=== PATIENT | male | born 1995 | race Hispanic/Latino ===

== ENCOUNTER 2019-11-20 17:25 | Emergency (ER) | payer OTHER ==
--- NOTE | 2019-11-20 18:10 | RAD REPORT ---
EXAM DESCRIPTION: RAD - Pelvis - 11/20/2019 6:04 pm CLINICAL HISTORY: hip pain COMPARISON: Hip Left 2 View dated 11/20/2019 FINDINGS: No fracture, dislocation or radiographic evidence of AVN. IMPRESSION: Negative study.
--- NOTE | 2019-11-20 18:11 | RAD REPORT ---
EXAM DESCRIPTION: RAD - Hip Left 2 View - 11/20/2019 6:04 pm CLINICAL HISTORY: hip pain COMPARISON: Pelvis dated 11/20/2019 FINDINGS: No fracture or dislocation evident.
[2019-11-20] MEDS ORDERED: KETOROLAC 30 MG/ML INJ ONE (18:30)
--- NOTE | 2019-11-20 18:41 | EDPHYS ---
Physician Documentation [facility] Name: Wali Morin Age: 24 yrs Sex: Male : 1995 Arrival Date: 11/20/2019 Time: 17:28 Bed 20 Private MD: ED Physician Deepak Vlilegas HPI: 11/19 17:40 This 24 yrs old Male presents to ER via Ambulatory with complaints of Thigh jmm Pain. 17:40 The patient presents with an injury, pain. Onset: The symptoms/episode began/occurred jmm acutely, yesterday. Modifying factors: The symptoms are alleviated by nothing. the symptoms are aggravated by movement. This is a 24 year old male with no chronic medical conditions that presents to the ED with complaints of left hip pain after a fall which occurred yesterday. Patient states pain was more intense yesterday. Denies other injury. . Historical: - Allergies: 17:34 No Known Allergies; ca1 - Home Meds: 17:34 None [Active]; ca1 - PMHx: 17:34 None; ca1 - PSHx: 17:34 None; ca1 - Immunization history:: Adult Immunizations up to date, Flu vaccine is up to date. - Social history:: Smoking status: Patient denies any tobacco usage or history of. ROS: 17:40 Constitutional: Negative for fever, chills, and weight loss, Cardiovascular: Negative jmm for chest pain, palpitations, and edema, Respiratory: Negative for shortness of breath, cough, wheezing, and pleuritic chest pain. 17:40 MS/extremity: Positive for injury or acute deformity. 17:40 All other systems are negative. Exam: 17:40 Constitutional: This is a well developed, well nourished patient who is awake, alert, jmm and in no acute distress. Head/Face: atraumatic. Eyes: EOMI, no conjunctival erythema appreciated ENT: Moist Mucus Membranes Neck: Trachea midline, Supple Chest/axilla: Normal chest wall appearance and motion. Cardiovascular: Regular rate and rhythm. No edema appreciated Respiratory: Normal respirations, no respiratory distress appreciated Abdomen/GI: Non distended, soft Back: Normal ROM Skin: General appearance color normal 17:40 Musculoskeletal/extremity: ROM: intact in all extremities, left lateral thigh ttp, compartments are soft, FROM, NVI. 17:40 Skin: Appearance: Color: normal in color. 17:40 Neuro: Orientation: is normal, Mentation: is normal, Memory: is normal. 17:40 Psych: Behavior/mood is pleasant, cooperative. Vital Signs: 17:34 BP 136 / 95; Pulse 93; Resp 17 S; Temp 98.6(O); Pulse Ox 98% on R/A; Weight 113.4 kg ca1 (R); Height 5 ft. 5 in. (165.10 cm) (R); Pain 10/10; 18:34 BP 136 / 88; Pulse 82; Resp 18; Pulse Ox 98% on R/A; rb1 17:34 Body Mass Index 41.60 (113.40 kg, 165.10 cm) ca1 MDM: 17:40 Patient medically screened. [facility] 18:37 Data reviewed: vital signs, nurses notes. Counseling: I had a detailed discussion with [facility] the patient and/or guardian regarding: the historical points, exam findings, and any diagnostic results supporting the discharge/admit diagnosis, radiology results, the need for outpatient follow up, to return to the emergency department if symptoms worsen or persist or if there are any questions or concerns that arise at home. ED course: imaging studies negative. patient is advised to follow up with pcp for reevaluation. Patient otherwise given strict return precautions. Patient understood and agrees with the plan of care. . 11/19 17:41 Order name: Pelvis XRAY; Complete Time: 18:15 [facility] 11/19 17:41 Order name: Hip Left 2 View XRAY; Complete Time: 18:15 [facility] Administered Medications: 18:29 Drug: Ketorolac 30 mg Route: IM; Site: left deltoid; rb1 18:49 Follow up: Response: No adverse reaction rb1 Disposition: 11/20 07:12 Co-signature as Attending Physician, Deepak Villegas MD. rn Disposition: 11/20/19 18:40 Discharged to Home. Impression: Strain of muscle, fascia and tendon of left hip. - Condition is Stable. - Discharge Instructions: Hip Pain. - Prescriptions for orphenadrine citrate 100 mg Oral Tablet Sustained Release - take 1 tablet by ORAL route 2 times per day As needed; 20 tablet. - Medication Reconciliation Form, Thank You Letter, Antibiotic Education, Prescription Opioid Use form. - Follow up: Private Physician; When: 2 - 3 days; Reason: Recheck today's complaints, Continuance of care, Re-evaluation by your physician. Signatures: Dispatcher [employer] EDBenny Sousa PA PA jmm Nieto, Roman, MD MD rn Denise Camp RN RN rb1 Vandana Christian RN RN ca1 Corrections: (The following items were deleted from the chart) 11/19 18:50 18:40 11/20/2019 18:40 Discharged to Home. Impression: Strain of muscle, fascia and rb1 tendon of left hip. Condition is Stable. Forms are Medication Reconciliation Form, Thank You Letter, Antibiotic Education, Prescription Opioid Use. Follow up: Private Physician; When: 2 - 3 days; Reason: Recheck today's complaints, Continuance of care, Re-evaluation by your physician. diya
--- NOTE | 2019-11-20 18:41 | ER ---
Nurse's Notes [facility] Name: Wali Morin Age: 24 yrs Sex: Male : 1995 Arrival Date: 11/20/2019 Time: 17:28 Bed 20 Private MD: Diagnosis: Strain of muscle, fascia and tendon of left hip Presentation: 11/19 17:30 Chief complaint: Patient states: Slipped, fell and landed awkwardly on L leg last nigh. ca1 Today, c/o of L thigh pain that is sharp, tender and aggravated when walking. Reports pain is radiating to L knee and to L foot. Coronavirus screen: Proceed with normal triage. Patient denies a cough. Patient denies shortness of breath or difficulty breathing. Patient denies measured and/or subjective temperature greater than 100.4F prior to today's visit. Patient denies travel on a cruise ship or to a country the [facility] currently lists as an affected area. Patient denies contact with known and/or suspected case of COVID-19. Ebola Screen: Patient negative for fever greater than or equal to 101.5 degrees Fahrenheit, and additional compatible Ebola Virus Disease symptoms Patient denies exposure to infectious person. Patient denies travel to an Ebola-affected area in the 21 days before illness onset. No symptoms or risks identified at this time. Initial Sepsis Screen: Does the patient meet any 2 criteria? No. Patient's initial sepsis screen is negative. Does the patient have a suspected source of infection? No. Patient's initial sepsis screen is negative. Risk Assessment: Do you want to hurt yourself or someone else? Patient reports no desire to harm self or others. Onset of symptoms was November 19, 2019. 17:30 Method Of Arrival: Ambulatory ca1 17:30 Acuity: JEFFY 4 ca1 Historical: - Allergies: 17:34 No Known Allergies; ca1 - Home Meds: 17:34 None [Active]; ca1 - PMHx: 17:34 None; ca1 - PSHx: 17:34 None; ca1 - Immunization history:: Adult Immunizations up to date, Flu vaccine is up to date. - Social history:: Smoking status: Patient denies any tobacco usage or history of. Screenin:43 Abuse screen: Denies threats or abuse. Nutritional screening: No deficits noted. rb1 Tuberculosis screening: No symptoms or risk factors identified. Fall Risk Fall in past 12 months (25 points). No secondary diagnosis (0 pts). No IV (0 pts). Ambulatory Aid- None/Bed Rest/Nurse Assist (0 pts). Gait- Normal/Bed Rest/Wheelchair (0 pts) Mental Status- Oriented to own ability (0 pts). Total Andres Fall Scale indicates Low Risk Score (25-44 pts). Fall prevention measures have been instituted. Side Rails Up X 2 Placed close to Nursing Station 1:1 attendant Assigned to Pt. Frequent Obs/Assesments occuring As available Patient and Family Educated on Fall Prevention Program and strategies. Assessment: 17:43 General: Appears in no apparent distress. comfortable, Behavior is calm, cooperative. rb1 Pain: Complains of pain in left thigh Pain radiates to left knee to the left foot Pain began last night. Neuro: Level of Consciousness is awake, alert, obeys commands, Oriented to person, place, time, situation. Cardiovascular: Capillary refill < 3 seconds is brisk in bilateral fingers. Respiratory: Airway is patent Respiratory effort is even, unlabored, Respiratory pattern is regular, symmetrical. GI: No signs and/or symptoms were reported involving the gastrointestinal system. : No signs and/or symptoms were reported regarding the genitourinary system. Derm: Skin is pink, warm \T\ dry. 18:34 Reassessment: Patient appears in no apparent distress at this time. rb1 Vital Signs: 17:34 BP 136 / 95; Pulse 93; Resp 17 S; Temp 98.6(O); Pulse Ox 98% on R/A; Weight 113.4 kg ca1 (R); Height 5 ft. 5 in. (165.10 cm) (R); Pain 10/10; 18:34 BP 136 / 88; Pulse 82; Resp 18; Pulse Ox 98% on R/A; rb1 17:34 Body Mass Index 41.60 (113.40 kg, 165.10 cm) ca1 ED Course: 17:28 Patient arrived in ED. as 17:31 Benny Barreto PA is PHCP. jmm 17:31 Deepak Villegas MD is Attending Physician. jmm 17:32 Triage completed. ca1 17:34 Arm band placed on right wrist. ca1 17:43 Patient has correct armband on for positive identification. Bed in low position. Call rb1 light in reach. Side rails up X 1. Pulse ox on. NIBP on. 17:47 Denise Camp, RN is Primary Nurse. rb1 18:04 Pelvis XRAY In Process Unspecified. EDMS 18:04 Hip Left 2 View XRAY In Process Unspecified. EDMS 18:49 No provider procedures requiring assistance completed. Patient did not have IV access rb1 during this emergency room visit. Administered Medications: 18:29 Drug: Ketorolac 30 mg Route: IM; Site: left deltoid; rb1 18:49 Follow up: Response: No adverse reaction rb1 Outcome: 18:40 Discharge ordered by . diya 18:49 Discharged to home ambulatory. rb1 18:49 Condition: stable 18:49 Discharge instructions given to patient, Instructed on discharge instructions, follow up and referral plans. medication usage, Demonstrated understanding of instructions, follow-up care, medications, Prescriptions given X 1. 18:50 Patient left the ED. [facility] Signatures: Dispatcher [employer] EDAZ Benny Barreto PA PA Camila Langford as Denise Camp, RN RN rb1 Vandana Christian RN RN ca1
[2019-11-20 18:55] VITALS: TEMP 98.6; O2SAT 98
[2019-11-20 18:56] VITALS: BP 136/88
== END 2019-11-20 18:50 | disposition home or self-care (01) ==
LOC: ER 17:25
DX: S76.012A Strain of muscle, fascia and tendon of left hip, initial encounter (principal); W19.XXXA Unspecified fall, initial encounter; Y93.9 Activity, unspecified; Y92.009 Unspecified place in unspecified non-institutional (private) residence as the place of occurrence of the external cause
CPT/HCPCS: 72170; 96372; 99284

== ENCOUNTER 2021-11-17 22:16 | Inpatient (IN) | payer OTHER, SELFPAY ==
[2021-11-17] MEDS ORDERED: MORPHINE 4 MG/ML SYR ONE (23:38)
[2021-11-17] MEDS ORDERED: NA CHLORIDE 0.9% 1,000 ML ONE (23:39)
[2021-11-17] MEDS ORDERED: ONDANSETRON 4 MG/2 ML VIAL ONE (23:39)
[2021-11-17 23:44] LABS: Absolute Lymphocytes (CBC) 2.3 K/uL (0.7-4.9); Hematocrit 43.8 % (39.6-49.0); Lymphocytes % 17.7 % (15.3-44.8); MPV 9.9 fL (7.6-11.3); RBC Red Blood Cell Count 5.03 M/uL (4.33-5.43)
[2021-11-17 23:48] LABS: Urine Blood Trace-intact (Negative); Urine Glucose Negative (Negative); Urine Protein Negative (Negative); Urine Specific Gravity 1.015 (1.005-1.030); Urine pH 6.5 (5.0-7.0)
[2021-11-17 23:55] LABS: ALT/SGPT 24 U/L (12-78); AST/SGOT 10 U/L (15-37); Albumin 3.7 g/dL (3.4-5.0); Alkaline Phosphatase 63 U/L (45-117); BUN Blood Urea Nitrogen 8 mg/dL (7-18); Bicarbonate 30 mmol/L (21-32); Bilirubin Total 0.7 mg/dL (0.2-1.0); Glucose Level 102 mg/dL (74-106); Lipase 121 U/L (73-393); Potassium 3.6 mmol/L (3.5-5.1); Protein, Total 7.6 g/dL (6.4-8.2); Sodium Level 138 mmol/L (136-145)
--- NOTE | 2021-11-18 01:33 | EDPHYS ---
Physician Documentation [facility] Name: Wali Morin Age: 26 yrs Sex: Male : 1995 Arrival Date: 11/17/2021 Time: 22:20 Bed 6 Private MD: ED Physician Deepak Villegas HPI: 11/17 23:12 This 26 yrs old Male presents to ER via Ambulatory with complaints of rn Abdominal Pain, Back Pain, Vomiting. 23:12 The patient presents with abdominal pain in the right upper quadrant. Onset: The rn symptoms/episode began/occurred 3 day(s) ago. The symptoms radiate to right back. Associated signs and symptoms: Pertinent positives: nausea and vomiting, Pertinent negatives: blood in stools, diarrhea, dysuria, fever, shortness of breath, testicular pain, vomiting blood. The symptoms are described as intermittent, sharp. Modifying factors: The symptoms are alleviated by nothing, the symptoms are aggravated by touching the area. Severity of pain: At its worst the pain was moderate in the emergency department the pain has improved. The patient has experienced similar episodes in the past. The patient has not recently seen a physician. Reports RUQ abd pain intermittent for 1 month, worse over last 3 days, assoc with nausea/vomiting. No diarrhea. No fever. NO trauma. Reports sometimes worse with food.. Historical: - Allergies: 23:06 No Known Allergies; jb4 - Home Meds: 23:06 None [Active]; jb4 - PMHx: 23:06 None; jb4 - PSHx: 23:06 None; jb4 - Immunization history:: Adult Immunizations up to date. - Social history:: Smoking status: Patient denies any tobacco usage or history of. Patient uses alcohol, Patient/guardian denies using street drugs. - Family history:: not pertinent. - Hospitalizations: : No recent hospitalization is reported. ROS: 23:12 Constitutional: Negative for fever, chills, and weight loss, Eyes: Negative for injury, rn pain, redness, and discharge, ENT: Negative for injury, pain, and discharge, Cardiovascular: Negative for chest pain, palpitations, and edema, Respiratory: Negative for shortness of breath, cough, wheezing, and pleuritic chest pain, Abdomen/GI: + RUQ abd pain with nausea/vomiting Back: Negative for injury and pain, MS/Extremity: Negative for injury and deformity, Skin: Negative for injury, rash, and discoloration, Neuro: Negative for headache, weakness, numbness, tingling, and seizure. Exam: 23:12 Constitutional: This is a well developed, well nourished patient who is awake, alert, rn and in no acute distress. Ambulatory to room without assistance. Head/Face: Normocephalic, atraumatic. Eyes: Periorbital areas with no swelling, redness, or edema. Cardiovascular: Regular rate and rhythm. No pulse deficits. Respiratory: No increased work of breathing, no retractions or nasal flaring. Abdomen/GI: soft, + RUQ tenderness with mild guarding, no rebound Skin: Warm, dry MS/ Extremity: Pulses equal, no cyanosis. Neuro: Awake and alert, GCS 15 Vital Signs: 23:09 BP 131 / 82; Pulse 80; Resp 16; Pulse Ox 98% on R/A; Weight 104.33 kg (R); Height 5 ft. jb4 6 in. (167.64 cm) (R); Pain 10/10; 23:52 BP 114 / 82; Pulse 70; Resp 18 S; Pulse Ox 96% on R/A; as6 11/18 01:01 BP 124 / 84; Pulse 64; Resp 18 S; Pulse Ox 98% on R/A; as6 11/17 23:09 Body Mass Index 37.12 (104.33 kg, 167.64 cm) jb4 MDM: 11/17 23:02 Patient medically screened. rn 11/18 01:31 Differential diagnosis: cholecystitis, Cholelithiasis, gastritis, gastroesophageal rn reflux disease. Data reviewed: vital signs, nurses notes, lab test result(s), radiologic studies, CT scan, ultrasound, and as a result, I will admit patient. Counseling: I had a detailed discussion with the patient and/or guardian regarding: the historical points, exam findings, and any diagnostic results supporting the discharge/admit diagnosis, lab results, radiology results, the need for further work-up and treatment in the hospital. Response to treatment: the patient's symptoms have mildly improved after treatment, and as a result, I will admit patient. 01:31 Admission orders: after a detailed discussion of the patient's condition and case, the porcelain turner orders are written by me. ED course: CT shows possible acute cholecystitis, u/s shows gallbladder full of stones. Will admit to Dr. Ferrell. Abx ordered.. 11/17 23:11 Order name: CBC with Diff; Complete Time: 23:56 rn 11/17 23:11 Order name: CMP; Complete Time: 23:56 rn 11/17 23:11 Order name: Lipase; Complete Time: 23:56 rn 11/17 23:11 Order name: Abdomen Limited US rn 11/17 23:49 Order name: Urine Dipstick-Ancillary; Complete Time: 23:56 EDMS 11/18 01:34 Order name: COVID-19/FLU A+B (Document "Date of Onset" if Symptomatic); Complete Time: tw5 06:29 11/17 23:11 Order name: CT Abd/Pelvis - IV Contrast Only rn 11/17 23:11 Order name: IV Saline Lock; Complete Time: 23:32 rn 11/17 23:11 Order name: Labs collected and sent; Complete Time: 23:32 rn 11/17 23:15 Order name: Urine Dipstick-Ancillary (obtain specimen); Complete Time: 23:49 rn 11/18 10:19 Order name: NPO; Complete Time: 10:38 sofia Administered Medications: 11/17 23:42 Drug: NS 0.9% 1000 ml Route: IV; Rate: 1 bolus; Site: left antecubital; as6 11/18 01:02 Follow up: Response: No adverse reaction; IV Status: Completed infusion; IV Intake: as6 1000ml 11/17 23:42 Drug: Zofran (Ondansetron) 4 mg Route: IVP; Site: left antecubital; as6 11/18 01:02 Follow up: Response: No adverse reaction as6 11/17 23:42 Drug: morphine 4 mg Route: IVP; Site: left antecubital; as6 11/18 01:01 Follow up: Response: No adverse reaction; RASS: Alert and Calm (0) as6 01:45 Drug: Zosyn (piperacillin-tazobactam) 3.375 grams Route: IVPB; Infused Over: 60 mins; as6 Site: left antecubital; 04:19 Follow up: Response: No adverse reaction; IV Status: Completed infusion; IV Intake: as6 100ml Disposition Summary: 11/18/21 01:32 Hospitalization Ordered Hospitalization Status: Inpatient Admission rn Provider: Bart Ferrell rn Condition: Stable rn Problem: new rn Symptoms: have improved rn Bed/Room Type: Standard rn Location: [facility] ER HOLD(11/18/21 02:04) cg Room Assignment: ERHOLD-(11/18/21 02:04) cg Diagnosis - Acute cholecystitis rn Forms: - Medication Reconciliation Form rn - SBAR form rn Signatures: Dispatcher [employer] EDErnst Fabian MD MD cha Nieto, Roman, MD MD rn Garcia, Cindy RN RN Bart Norris, RN RN jb4 Ernesto Frank, RN RN as6 Corrections: (The following items were deleted from the chart) 11/17 23:14 23:12 Reports RUQ abd pain intermittent for 1 month, worse over last 3 days, assoc with rn nausea/vomiting. No diarrhea. No fever. NO trauma. . rn 11/18 02:04 01:32 Telemetry/MedSurg (Inpatient) rn 02:04 01:32 rn cg
--- NOTE | 2021-11-18 01:33 | ER ---
Nurse's Notes [facility] Name: Wali Morin Age: 26 yrs Sex: Male : 1995 Arrival Date: 11/17/2021 Time: 22:20 Bed 6 Private MD: Diagnosis: Acute cholecystitis Presentation: 11/17 23:05 Chief complaint: Patient states: I am having right upper abdominal pain for the past jb4 month on and off and it got worse 3 days ago. It radiates to my shoulder blades. I have had some vomiting. Coronavirus screen: At this time, the client does not indicate any symptoms associated with coronavirus-19. Ebola Screen: No symptoms or risks identified at this time. Initial Sepsis Screen: Does the patient meet any 2 criteria? No. Patient's initial sepsis screen is negative. Does the patient have a suspected source of infection? No. Patient's initial sepsis screen is negative. Risk Assessment: Do you want to hurt yourself or someone else? Patient reports no desire to harm self or others. Onset of symptoms was October 02, 2021. Transition of care: patient was not received from another setting of care. 23:05 Method Of Arrival: Ambulatory jb4 23:05 Acuity: JEFFY 3 jb4 Historical: - Allergies: 23:06 No Known Allergies; jb4 - Home Meds: 23:06 None [Active]; jb4 - PMHx: 23:06 None; jb4 - PSHx: 23:06 None; jb4 - Immunization history:: Adult Immunizations up to date. - Social history:: Smoking status: Patient denies any tobacco usage or history of. Patient uses alcohol, Patient/guardian denies using street drugs. - Family history:: not pertinent. - Hospitalizations: : No recent hospitalization is reported. Screenin:53 Abuse screen: Denies threats or abuse. Denies injuries from another. Nutritional as6 screening: No deficits noted. Tuberculosis screening: No symptoms or risk factors identified. Fall Risk None identified. Assessment: 23:52 General: Appears in no apparent distress. Behavior is calm, cooperative. Pain: as6 Complains of pain in right upper quadrant Pain radiates to back Pain currently is 8 out of 10 on a pain scale. Neuro: Level of Consciousness is awake, alert, obeys commands, Oriented to person, place, time, situation. Cardiovascular: Capillary refill < 3 seconds Patient's skin is warm and dry. Respiratory: Airway is patent Trachea midline Respiratory effort is even, unlabored, Respiratory pattern is regular, symmetrical. GI: Bowel sounds present X 4 quads. Abd is soft Reports upper abdominal pain, nausea. 11/18 01:01 Reassessment: Patient and/or family updated on plan of care and expected duration. Pain as6 level reassessed. Patient states symptoms have improved. Vital Signs: 11/17 23:09 BP 131 / 82; Pulse 80; Resp 16; Pulse Ox 98% on R/A; Weight 104.33 kg (R); Height 5 ft. jb4 6 in. (167.64 cm) (R); Pain 10/10; 23:52 BP 114 / 82; Pulse 70; Resp 18 S; Pulse Ox 96% on R/A; as6 11/18 01:01 BP 124 / 84; Pulse 64; Resp 18 S; Pulse Ox 98% on R/A; as6 11/17 23:09 Body Mass Index 37.12 (104.33 kg, 167.64 cm) jb4 ED Course: 11/17 22:20 Patient arrived in ED. ja2 23:02 Deepak Villegas MD is Attending Physician. rn 23:06 Triage completed. jb4 23:12 Arm band placed on left wrist. jb4 23:23 Ernesto Frank, RN is Primary Nurse. as6 23:28 Inserted saline lock: 20 gauge in left antecubital area, using aseptic technique. Blood as6 collected. 23:32 CBC with Diff Sent. as6 23:32 CMP Sent. as6 23:32 Lipase Sent. as6 23:36 Abdomen Limited US In Process Unspecified. EDMS 23:42 CBC with Diff Sent. as6 23:42 CMP Sent. as6 23:42 Lipase Sent. as6 23:53 Placed in gown. Bed in low position. Call light in reach. Side rails up X2. Pulse ox as6 on. NIBP on. 11/18 00:41 CT Abd/Pelvis - IV Contrast Only In Process Unspecified. EDMS 01:32 Bart Ferrell MD is Hospitalizing Provider. rn 01:59 COVID-19/FLU A+B (Document "Date of Onset" if Symptomatic) Sent. as6 04:20 No provider procedures requiring assistance completed. Patient admitted, IV remains in as6 place. Administered Medications: 11/17 23:42 Drug: NS 0.9% 1000 ml Route: IV; Rate: 1 bolus; Site: left antecubital; as6 11/18 01:02 Follow up: Response: No adverse reaction; IV Status: Completed infusion; IV Intake: as6 1000ml 11/17 23:42 Drug: Zofran (Ondansetron) 4 mg Route: IVP; Site: left antecubital; as6 11/18 01:02 Follow up: Response: No adverse reaction as6 11/17 23:42 Drug: morphine 4 mg Route: IVP; Site: left antecubital; as6 11/18 01:01 Follow up: Response: No adverse reaction; RASS: Alert and Calm (0) as6 01:45 Drug: Zosyn (piperacillin-tazobactam) 3.375 grams Route: IVPB; Infused Over: 60 mins; as6 Site: left antecubital; 04:19 Follow up: Response: No adverse reaction; IV Status: Completed infusion; IV Intake: as6 100ml Intake: 01:02 IV: 1000ml; Total: 1000ml. as6 04:19 IV: 100ml; Total: 1100ml. as6 Outcome: 01:32 Decision to Hospitalize by Provider. rn 04:20 Admitted to ER Hold. Please see [facility] for further documentation. as6 04:20 Condition: stable 16:04 Patient left the ED. jl7 Signatures: Dispatcher [employer] EDMS Deepak Villegas MD MD rn Bryson, James RN RN [email or web address] Esther Torres RN RN [email or web address] Katia Chance Ashby, PRANAV RN as6
[2021-11-18] MEDS ORDERED: NA CHLORIDE 0.9% 100 ML IV ONE ×3 (01:45→14:48)
[2021-11-18] MEDS ORDERED: PIPERACIL/TAZO 3.375 GM VIAL IV ONE ×3 (01:45→14:48)
[2021-11-18 02:31] LABS: SARS-COV-2 RT PCR NEGATIVE (NEGATIVE)
[2021-11-18] MEDS: D5 0.45 NS 1,000 ML IV SCH ×3 (03:35→19:35)
[2021-11-18] MEDS ORDERED: ONDANSETRON 4 MG/2 ML VIAL IV PRN ×2 (03:35→18:49)
[2021-11-18] MEDS ORDERED: MORPHINE 4 MG/ML SYR IV PRN (03:35)
[2021-11-18] MEDS: PIPER TAZO 3.375 GM in NA CHLORIDE 0.9% 100 ML IV SCH ×3 (04:00→20:29)
[2021-11-18 04:30] VITALS: BMI 37.1
[2021-11-18] MEDS ORDERED: D5 0.45 NS 1,000 ML IV ONE ×2 (05:42→15:00)
[2021-11-18] MEDS ORDERED: MORPHINE 4 MG/ML SYR ONE (08:12)
[2021-11-18] MEDS ORDERED: ONDANSETRON 4 MG/2 ML VIAL ONE ×3 (08:12→18:33)
[2021-11-18] MEDS ORDERED: D5 0.9 NS 0 ML IV ONE (14:49)
[2021-11-18] MEDS ORDERED: GLYCOPYRROLATE 0.2 MG/ML SYR ONE (15:34)
[2021-11-18] MEDS ORDERED: FENTANYL CITR 100 MCG/2 ML ONE (15:34)
[2021-11-18] MEDS ORDERED: LIDOCAINE 1% MPF 5 ML VIAL ONE (15:34)
[2021-11-18] MEDS ORDERED: propofoL 200 MG/20 ML VIAL IV ONE (15:34)
[2021-11-18] MEDS ORDERED: MIDAZOLAM HCL 2 MG/2 ML INJ ONE (15:34)
[2021-11-18] MEDS ORDERED: NEOSTIGMINE 1 MG/ML -5 ML ONE (15:35)
[2021-11-18] MEDS ORDERED: KETOROLAC 30 MG/ML INJ ONE (15:35)
[2021-11-18] MEDS ORDERED: MORPHINE 10 MG/ML VIAL ONE (15:35)
[2021-11-18] MEDS ORDERED: ROCURONIUM 50 MG/5 ML VIAL IV ONE ×2 (15:35→17:53)
[2021-11-18] MEDS ORDERED: dexAMETHasone 4 MG/ML VIAL ONE (15:35)
[2021-11-18] MEDS ORDERED: Ringers Lactate 1,000 ML IV ONE ×2 (15:51→19:26)
--- NOTE | 2021-11-18 16:08 | P.HP ---
Date of Service: 11/18/21 PC: This 26-year-old male presented to the emergency room with severe right upper quadrant abdominal pain for diagnosis and treatment. HPC: Patient has been having abdominal discomfort for the last little while. Pain is not radiating into the right upper quadrant. Pain was hard, unrelenting, and he could no longer stand it. Since he has received some pain medicine it has become much more tolerable. PSHx: Negative PMHx: Negative Social Hx: Has no known allergies Sys R: No cough, wheeze, shortness of breath. No chest pain or palpitations. No urinary complaints. O/E: Awake alert vital signs are stable HEENT: Not jaundiced Chest: Chest movement equal bilaterally Abd: Tender in the right upper quadrant Jackson: Intact Data: Has documented cholecystitis with cholelithiasis which correlates with clinical findings Impression: Acute cholecystitis with cholelithiasis Plan: I will taken the operating room for laparoscopic possible open cholecystectomy. We will also do a cholangiogram. The risks of this procedure have been discussed. The possibility of bleeding, infection, injury to bile ducts blood vessels and intestines has been described. The possible need for an open and/or further surgeries and procedures was discussed. He understands and wants us to proceed.
--- NOTE | 2021-11-18 18:07 | P.OP ---
Preoperative diagnosis: Acute cholecystitis with cholelithiasis Postoperative diagnosis: The same Primary procedure: Laparoscopic cholecystectomy Secondary procedure: Cholangiogram Anesthesia: General Estimated blood loss: Less than 20 cc Specimen: Gallbladder and contents Operative Technique: The patient brought the operating room and placed supine on the table. After the induction of adequate general endotracheal anesthesia, there the abdomen was prepped with a DuraPrep solution, and he was draped in usual aseptic manner. A subumbilical incision was made. This was brought down through the skin and subcutaneous tissue. The Visiport was used to enter the peritoneal cavity and created pneumoperitoneum to approximately 12 mmHg. Under direct vision a 5 mm trocar was placed in the upper midline, and 2 other 5 mm trochars on the right lateral side of the abdomen. Attention was turned towards right upper quadrant. With the patient placed in reverse reverse Trendelenburg and rolled to the left we could see there was an inflammatory process just underneath the liver with the omentum attached to it. These gentle these adhesions were gently swept down. Down towards Correa's pouch were more marked adhesions of the omentum to the gallbladder itself. A grasper was placed on the fundus of the gallbladder. It was necessary to aspirate his contents to allow the application of the grasper. This having been done another grasper was placed on by Correa's pouch. We were able to gently dissect around and up to identify where the cystic duct was. The cystic duct was noted be markedly congested and inflamed at the area of the junction with the gallbladder. The cystic duct was identified. It was isolated so as to obtain the critical view. This having been done we could feel that there was a stone stuck in the actual gallbladder itself. An opening was made into the cystic duct. We attempted to milk the stone out. We obtained a cholangiogram which showed good flow of contrast into the duodenum. However there felt to be an obstruction still in the cystic duct. By overinflated this portion of the cystic duct we were able to get 2 stones actually popped out of the distal end of the cystic duct. This having been done a tie of chromic was placed around the cystic duct after it had been transected. 2 additional clips were placed in the area as well to ensure adequate closure. The cystic artery was identified. It was clipped and divided in the usual way. The gallbladder was now dissected free from the liver bed. It was noted to have a lot of adhesions to the liver bed with areas of edema. The gallbladder was finally detached. It was placed into an Endo Catch. We were able to bring it out through the umbilicus this trocar after using a nasal speculum and wanting the skin incision. At this point the abdomen was inspected to ensure adequate hemostasis. The umbilical trocar site was approximated with 3 absorbable sutures placed using the Endo Close. The irrigating fluid was aspirated from the peritoneal cavity. The trochars were then removed. The pneumoperitoneum was collapsed. Miriam were then applied to the skin. At the end of the procedure he was stable and sent to the recovery room. Needle sponge and instrument count were correct. No drains were placed. Complications: None Transferred to: Recovery Room Condition: Good
[2021-11-18] MEDS ORDERED: HYDROMORPHONE HCL 1 MG/ML INJ IV ONE (18:26)
[2021-11-18] MEDS ORDERED: ONDANSETRON 4 MG/2 ML VIAL IV ONE (18:28)
[2021-11-18] MEDS ORDERED: HYDROMORPHONE HCL 1 MG/ML INJ ONE (18:29)
[2021-11-18] MEDS: HYDROMORPHONE HCL 1 MG/ML INJ IV ONE ×3 (18:32→18:52)
[2021-11-18 18:55] VITALS: O2SAT 99
[2021-11-18] MEDS ORDERED: D5 0.45 NS 1,000 ML IV SCH (21:00)
--- NOTE | 2021-11-18 21:32 | RAD REPORT ---
EXAM DESCRIPTION: RADCholangiogram Oper-Xray Or11/18/2021 8:55 pm CLINICAL HISTORY: Abdominal pain FINDINGS: The examination was performed by Dr. Ferrell. The cystic duct was cannulated and contrast administered. Contrast flowed into the duodenum. The biliary tree is normal caliber. There is some extravasation of contrast from the cystic duct. Fluoroscopy time 0.8 minutes. Seven fluoroscopic spot images obtained
[2021-11-18] MEDS: HYDROCODONE/APAP 7.5/325 MG TAB PO PRN (23:09)
[2021-11-19] MEDS: MORPHINE 4 MG/ML SYR IV PRN ×3 (01:35→13:54)
[2021-11-19] MEDS: PIPER TAZO 3.375 GM in NA CHLORIDE 0.9% 100 ML IV SCH ×2 (04:27→11:27)
[2021-11-19] MEDS: HYDROCODONE/APAP 7.5/325 MG TAB PO PRN (09:39)
--- NOTE | 2021-11-19 12:25 | RAD REPORT ---
EXAM DESCRIPTION: US - Abdomen Exam Limited - 11/17/2021 11:34 pm CLINICAL HISTORY: 26 years, Male, ABD PAIN COMPARISON: None. TECHNIQUE: Utilizing a curved array transducer, real-time ultrasound evaluation of the abdominal vis cera was performed. Color Doppler imaging was used to assess vascular flow. FINDINGS: The liver demonstrate increased echogenicity suggesting the possibility of fatty infiltrat ion. No definitive significant biliary duct dilatation within the visualized provided images. The gallbladder demonstrate the presence of debris/echogenic material corresponding to sludge perhaps minimal gravel. No pericholecystic fluid and or wall thickening was identified. The common bile duct measures 3.8 mm. No intra or extrahepatic biliary duct dilatation was identified. The pancreas, right kidney and aorta were not imaged. IMPRESSION: LIMITED EVALUATION OF THE GALLBLADDER DEMONSTRATED PRESENCE OF DEBRIS/GRAVEL/TINY CALCUL I VERSUS SLUDGE. INCOMPLETE EVALUATION OF THE LIVER, PANCREAS, KIDNEY AND ABDOMINAL AORTA. Electronically signed by: Americo Morton MD 11/17/2021 11:59 PM CDT Due to temporary technical issues with the PACS/Fluency reporting system, reports are being signed by the in house radiologists without review as a courtesy to insure prompt reporting. The interpreting radiologist is fully responsible for the content of the report.
--- NOTE | 2021-11-19 12:36 | RAD REPORT ---
EXAM DESCRIPTION: CT - Abdomen Pelvis W Contrast - 11/18/2021 6:55 am CLINICAL HISTORY: Abdominal pain, acute, nonlocalized COMPARISON: None. TECHNIQUE: CT ABDOMEN PELVIS WITH IV CONTRAST on 11/17/2021 11:11 PM CDT This exam was performed according to our departmental dose-optimization program, which includes autom ated exposure control, adjustment of the mA and/or kV according to patient size and/or use of iterati ve reconstruction technique. FINDINGS: Lower lungs are clear. Abdomen: Liver is fatty in attenuation. There is no biliary dilatation. There is questionable mild in flammation surrounding the gallbladder. The pancreas and spleen are normal in appearance. The adrenal glands and kidneys are unremarkable. Abdominal aorta is normal in course and caliber without aneurysm. There is no free air. There is no r etroperitoneal adenopathy. Pelvis: There is no bowel obstruction. Urinary bladder is unremarkable. There is no free fluid. Appen megan is normal. Skeleton: There are no acute osseous findings. No suspicious bony lesions. IMPRESSION: Possible acute cholecystitis. Electronically signed by: Kavin Gaspar MD 11/18/2021 12:58 AM CDT Due to temporary technical issues with the PACS/Fluency reporting system, reports are being signed by the in house radiologists without review as a courtesy to insure prompt reporting. The interpreting radiologist is fully responsible for the content of the report.
[2021-11-19 14:14] VITALS: BP 116/69; TEMP 97.8
--- NOTE | 2021-11-19 14:15 | P.PN ---
Date of Service: 11/19/21 S: Patient feels much better today, minimal abdominal tenderness. Controlled by oral medication. O: Vital signs are stable, incisions are clean. Good effort on incentive spirometry. A: Surgically stable P: Patient is stable status post laparoscopic cholecystectomy with cholangiogram. I will discharge him home today. He will see me next week. We will represcribe some oral pain medication. Should he have any questions or problems, he will contact me otherwise he will call make an appointment for early next week. He understands and wants to be discharged.
== END 2021-11-19 15:42 | disposition home or self-care (01) | DRG 419 ==
LOC: ER 22:16 → ERHOLD 11-18 01:52 → 2ND 11-18 16:46
PROVIDERS: ADMIT Surgery; ATTEND Surgery
PROC: BF00YZZ Plain Radiography of Bile Ducts using Other Contrast (ICD-10-PCS; 2021-11-18)
PROC: 0FT44ZZ Resection of Gallbladder, Percutaneous Endoscopic Approach (ICD-10-PCS; principal; 2021-11-18 16:00)
DX: K80.00 Calculus of gallbladder with acute cholecystitis without obstruction (principal); Z20.822 Contact with and (suspected) exposure to COVID-19
CPT/HCPCS: 0240U; 36415; 74177; 74300; 76705; 80053; 81003; 83690; 85025; 88304; 94010; 96361; 96365; 96366; 96375; 99285; J1100; J1170; J2250; J2405; J2543; J2704; J2710; J3010; J7030; J7042; J7120; J7799; Q9967